=== PATIENT | female | born 2000 | race Caucasian/White ===

== ENCOUNTER 2019-01-14 18:17 | Emergency (ER) | payer SELFPAY ==
[~2019-01-14] VITALS: Ht 165.1 cm; Wt 70.0 kg
[~2019-01-14 18:17] MED LIST: ALL DAY ALLG10 M1 OR; BLEPH-1010 % OD; CLINDAMYCIN150 MG PO
[2019-01-14] MEDS ORDERED: AMOXICILLIN500 MG PO (19:25)
[2019-01-14] MEDS ORDERED: DELTASONE20 MG PO (19:25)
[2019-01-14] MEDS ORDERED: ZOFRAN4 M1 PO (19:25)
[2019-01-14 21:14] VITALS: BP 128/78
== END 2019-01-14 21:15 | disposition home or self-care (01) | DRG 153 ==
LOC: ED 18:17
DX: J02.9 Acute pharyngitis, unspecified (principal); R11.2 Nausea with vomiting, unspecified; R21 Rash and other nonspecific skin eruption